=== PATIENT | male | born 1995 | race Caucasian/White ===

== ENCOUNTER 2018-01-12 16:22 | Emergency (ER) | payer SELFPAY ==
[~2018-01-12] VITALS: Ht 180.3 cm; Wt 85.7 kg
[2018-01-12 16:32] VITALS: Ht 180.3 cm; Wt 85.7 kg
[2018-01-12 17:51] LABS: UA SPECIFIC GRAVITY <=1.005 (1.005-1.035); microscopic required? YES; urine erythrocyte NEGATIVE (NEGATIVE)
[2018-01-12 19:15] VITALS: BP 130/64
== END 2018-01-12 19:15 | disposition home or self-care (01) ==
LOC: ED 16:22
PROVIDERS: Emergency Medicine
DX: S02.2XXA Fracture of nasal bones, initial encounter for closed fracture (principal); S00.83XA Contusion of other part of head, initial encounter; Y04.8XXA Assault by other bodily force, initial encounter
CPT/HCPCS: 87491; 87591

== ENCOUNTER 2019-01-24 14:21 | Emergency (ER) | payer OTHER ==
[~2019-01-24] VITALS: Ht 182.9 cm; Wt 106.1 kg
[2019-01-24 15:05] VITALS: BP 160/107; Ht 182.9 cm; Wt 106.1 kg
== END 2019-01-24 19:02 | disposition home or self-care (01) ==
LOC: ED 14:21
DX: L02.31 Cutaneous abscess of buttock (principal)
CPT/HCPCS: J2001

== ENCOUNTER 2019-01-26 12:58 | Emergency (ER) | payer OTHER ==
[~2019-01-26] VITALS: Ht 182.9 cm; Wt 105.7 kg
[2019-01-26 13:12] VITALS: Ht 182.9 cm; Wt 105.7 kg
[2019-01-26 14:48] VITALS: BP 142/80
== END 2019-01-26 14:48 | disposition home or self-care (01) ==
LOC: ED 12:58
DX: L02.31 Cutaneous abscess of buttock (principal)

== ENCOUNTER 2020-06-14 17:02 | Emergency (ER) | payer OTHER ==
[~2020-06-14] VITALS: Ht 182.9 cm; Wt 113.4 kg
[2020-06-14 17:04] VITALS: Ht 182.9 cm; Wt 113.4 kg
[2020-06-14 18:51] VITALS: BP 138/65
== END 2020-06-14 18:51 | disposition home or self-care (01) ==
LOC: ED 17:02
DX: S71.011A Laceration without foreign body, right hip, initial encounter (principal); X99.1XXA Assault by knife, initial encounter; Y93.89 Activity, other specified; Y92.89 Other specified places as the place of occurrence of the external cause; Y99.8 Other external cause status
CPT/HCPCS: 90715; J1885; J2001

== ENCOUNTER 2020-06-17 18:56 | Emergency (ER) | payer OTHER ==
[~2020-06-17] VITALS: Ht 182.9 cm; Wt 112.9 kg
[2020-06-17 19:11] VITALS: Ht 182.9 cm; Wt 112.9 kg
[2020-06-17 19:49] VITALS: BP 132/75
== END 2020-06-17 19:40 | disposition home or self-care (01) ==
LOC: ED 18:56
DX: S31.113D Laceration without foreign body of abdominal wall, right lower quadrant without penetration into peritoneal cavity, subsequent encounter (principal); F17.210 Nicotine dependence, cigarettes, uncomplicated; X58.XXXD Exposure to other specified factors, subsequent encounter
CPT/HCPCS: 99406; J2001

== ENCOUNTER 2020-06-24 11:59 | Emergency (ER) | payer OTHER ==
[~2020-06-24] VITALS: Ht 182.9 cm; Wt 112.9 kg
[2020-06-24 12:08] VITALS: Ht 182.9 cm; Wt 112.9 kg
[2020-06-24 14:50] VITALS: BP 131/70
== END 2020-06-24 14:50 | disposition home or self-care (01) ==
LOC: ED 11:59
DX: S71.012D Laceration without foreign body, left hip, subsequent encounter (principal); F17.210 Nicotine dependence, cigarettes, uncomplicated; E66.9 Obesity, unspecified; F12.20 Cannabis dependence, uncomplicated; E11.9 Type 2 diabetes mellitus without complications; Z68.33 Body mass index [BMI] 33.0-33.9, adult; X58.XXXD Exposure to other specified factors, subsequent encounter
CPT/HCPCS: 99406

== ENCOUNTER 2020-11-20 11:17 | Emergency (ER) | payer OTHER ==
[~2020-11-20] VITALS: Ht 182.9 cm; Wt 112.0 kg
[2020-11-20] MEDS ORDERED: KEF500 PO (12:15)
[2020-11-20] MEDS ORDERED: NAPROXEN375 MG PO (12:15)
[2020-11-20 12:47] VITALS: BP 150/75
== END 2020-11-20 12:47 | disposition home or self-care (01) ==
LOC: ED 11:17
DX: L03.116 Cellulitis of left lower limb (principal); R07.89 Other chest pain; F17.210 Nicotine dependence, cigarettes, uncomplicated; Z71.6 Tobacco abuse counseling
CPT/HCPCS: 99406